=== PATIENT | female | born 1945 | race Caucasian/White ===

== ENCOUNTER → 2020-04-17 10:12 | Outpatient (CLI) | payer MEDICARE, SELFPAY ==
--- NOTE | ~2020-04-17 | US_ITS ---
US soft tissue head and neck INDICATION: Dysphagia TECHNIQUE: Real-time sonographic images of the thyroid gland were obtained. COMPARISON: No prior studies for comparison. FINDINGS: The right thyroid lobe measures 4.4 x 1.5 x 1.4 cm. The left thyroid lobe measures 4.8 x 1 .5 x 1.2 cm. Mildly heterogeneous thyroid gland. In the right lobe there is a hypoechoic mass with sp ongiform appearance, hypoechoic, wider than tall, smooth margins and no calcifications measuring 10 x 6 x 8 mm, TR 2, not suspicious. In the left lobe there is a hypoechoic oval solid mass with smooth m argins, wider than tall and no calcifications measuring 4 x 3 x 6 mm, TR 4. There are mildly prominen t lymph nodes in the left neck in the area of palpable concern, largest measuring 8 mm. IMPRESSION: 1. Bilateral thyroid nodules, likely benign. Reviewed, dictated and finalized at location A. [employer]
== END ==
PROVIDERS: PCP Family Medicine; Visit Provider Nurse Practitioner Family
DX: R13.10 Dysphagia, unspecified (principal); R59.9 Enlarged lymph nodes, unspecified; E04.2 Nontoxic multinodular goiter
CPT/HCPCS: 76536

== ENCOUNTER 2020-07-20 11:05 | Outpatient (CLI) | payer MEDICARE, SELFPAY ==
[2020-07-20 12:53] LABS: Free T4 Free Thyroxine 1.16 ng/mL (0.78-2.19)
[2020-07-20 13:08] LABS: Total Triiodothyronine (T3) 1.27 NG/ML (0.97-1.69)
[2020-07-22 20:14] LABS: Thyroid Peroxidase Antibodies 2 IU/mL (<9)
[2020-07-24 13:28] LABS: Thyrotropin Receptor Antibody 6.72 IU/L (<=2.00)
== END 2020-07-20 11:06 | disposition home or self-care (01) ==
PROVIDERS: PCP Family Medicine; Referring Provider Internal Medicine Endocrinology, Diabetes & Metabolism; Visit Provider Internal Medicine Endocrinology, Diabetes & Metabolism
DX: E04.2 Nontoxic multinodular goiter (principal); R79.89 Other specified abnormal findings of blood chemistry
CPT/HCPCS: 36415; 83519; 84439; 84443; 84480; 86376

== ENCOUNTER → 2020-07-23 11:39 | Outpatient (CLI) | payer MEDICARE, SELFPAY ==
--- NOTE | ~2020-07-23 | US_ITS ---
EXAMINATION: US thyroid DATE: 07/23/2020 12:03 INDICATION: Left thyroid nodule. TECHNIQUE: Multiple ultrasound images of the thyroid were obtained. COMPARISON: Ultrasound 04/17/2020 FINDINGS: The right thyroid lobe measures 5.2 x 1.7 x 1.5 cm. The left thyroid lobe measures 4.7 x 1.1 x 1.2 c m. In the right thyroid lobe, there is an 8 mm solid, hypoechoic, ynrzg-emow-oesv nodule with ill-de fined margin without echogenic foci (TI-RADS TR4). In the left thyroid lobe, there is a 6 mm solid, h ypoechoic, rxasr-gocb-vhvy nodule with smooth margin without echogenic foci (TR4). IMPRESSION: 1. Small thyroid nodules, likely not clinically significant. No follow-up is needed. Reviewed, dictated and finalized at location A. IMPRESSION: 1. Small thyroid nodules, likely not clinically significant. No follow-up is ne eded.
== END ==
PROVIDERS: Visit Provider Internal Medicine Endocrinology, Diabetes & Metabolism
DX: E04.2 Nontoxic multinodular goiter (principal)
CPT/HCPCS: 76536

== ENCOUNTER 2021-02-22 07:38 | Outpatient (CLI) | payer MEDICARE, SELFPAY ==
[2021-02-22 08:47] LABS: Total Triiodothyronine (T3) 1.43 NG/ML (0.97-1.69)
[2021-02-22 08:53] LABS: Free T4 Free Thyroxine 1.17 ng/mL (0.78-2.19)
== END 2021-02-22 07:39 | disposition home or self-care (01) ==
LOC: ANHLAB 07:40
PROVIDERS: PCP Family Medicine; Visit Provider Internal Medicine Endocrinology, Diabetes & Metabolism
DX: E05.00 Thyrotoxicosis with diffuse goiter without thyrotoxic crisis or storm (principal)
CPT/HCPCS: 36415; 84439; 84443; 84480

== ENCOUNTER 2021-07-25 09:54 | Outpatient (CLI) | payer MEDICARE, SELFPAY ==
[2021-07-25 13:56] LABS: Free T4 Free Thyroxine 1.36 ng/mL (0.78-2.19)
[2021-07-28 15:02] LABS: Triiodothyronine T3 Free 3.1 pg/mL (2.3-4.2)
== END 2021-07-25 09:55 | disposition home or self-care (01) ==
LOC: ANHWCLAB 09:57
PROVIDERS: PCP Family Medicine; Referring Provider Internal Medicine Endocrinology, Diabetes & Metabolism; Visit Provider Internal Medicine Endocrinology, Diabetes & Metabolism
DX: E04.2 Nontoxic multinodular goiter (principal); E05.00 Thyrotoxicosis with diffuse goiter without thyrotoxic crisis or storm
CPT/HCPCS: 36415; 84439; 84443; 84481

== ENCOUNTER → 2021-07-29 13:35 | Outpatient (CLI) | payer MEDICARE, SELFPAY ==
--- NOTE | ~2021-07-29 | US_ITS ---
EXAMINATION: US thyroid DATE: 07/29/2021 14:00 INDICATION: Thyroid nodules. TECHNIQUE: Multiple ultrasound images of the thyroid were obtained. COMPARISON: Ultrasound 07/23/2020 FINDINGS: The right thyroid lobe measures 4.2 x 1.7 x 1.3 cm. The left thyroid lobe measures 4.5 x 1.3 x 1.4 c m. In the left thyroid lobe, there is a 6 mm solid, isoechoic, mhwpw-sjyc-enwf nodule with ill-defin ed margin without echogenic foci (TI-RADS TR3). In the right thyroid lobe, there is a 12 mm solid, hy poechoic, cayrj-ilvr-ufcf nodule with ill-defined margin without echogenic foci (TR4). In the right t hyroid lobe, there is a 6 mm solid, hypoechoic, msthv-jcei-ttml nodule with ill-defined margin withou t echogenic foci (TR4). IMPRESSION: 1. Thyroid nodules. Thyroid ultrasound is recommended in one year. Reviewed, dictated and finalized at location A.
== END ==
PROVIDERS: Visit Provider Internal Medicine Endocrinology, Diabetes & Metabolism
DX: E04.2 Nontoxic multinodular goiter (principal)
CPT/HCPCS: 76536

== ENCOUNTER 2021-09-01 14:31 | Outpatient (CLI) | payer MEDICARE, SELFPAY ==
--- NOTE | ~2021-09-01 | XR_ITS ---
EXAMINATION: XR lumbar spine 2-3V DATE: 09/01/2021 14:55 INDICATION: Low back pain, unspecified. TECHNIQUE: 3 views of lumbar spine were obtained. COMPARISON: Lumbar spine radiographs 12/14/2014 FINDINGS: There is 3 degrees dextrocurvature of lumbar spine. Vertebral body heights are normal. Ther e is severely decreased disc height at L5-S1 with interbody fusion. There are osteophytes at all leve ls. There is multilevel facet joint osteoarthritis, severe in lower lumbar spine. There are surgical clips in left abdomen. IMPRESSION: 1. Mild lumbar spondylosis. Reviewed, dictated and finalized at location A. IMPRESSION: 1. Mild lumbar spondylosis.
== END 2021-09-01 14:32 | disposition home or self-care (01) ==
PROVIDERS: PCP Family Medicine; Visit Provider Nurse Practitioner Family
DX: Z98.1 Arthrodesis status (principal); M47.816 Spondylosis without myelopathy or radiculopathy, lumbar region
CPT/HCPCS: 72100

== ENCOUNTER 2021-09-17 16:17 | Emergency (ER) | payer MEDICARE, SELFPAY ==
[2021-09-17] VITALS (9 sets, daily range): BP systolic 133–168; BP diastolic 70–99; PULSE 76–96; RESP 16–18; TEMP 36.8; O2SAT 96–100
--- NOTE | ~2021-09-17 | CT_ITS ---
EXAMINATION: CT cervical spine wo con DATE: 09/17/2021 17:52 INDICATION: FALL. NECK PAIN. TECHNIQUE: Computed tomography (CT) of the cervical spine was performed without intravenous contrast. Automated exposure control and iterative reconstruction technique were employed. The dose-length pro duct was 411.69 mGy-cm. COMPARISON: 12/30/2011. FINDINGS: Counting reference: Craniocervical junction. There are seven cervical type vertebral bodies. Anatomic Variants: None. Vertebral Body Alignment: Intact. Craniocervical junction: Severe degenerative change. Alignment intact. Osseous structures/fracture: No evidence of a lytic or blastic process in the visualized spine. N o evidence of acute fracture. Cervical soft tissues: The paraspinal soft tissues planes are maintained. Biapical pleural scarrin g. Degenerative changes: Multilevel degenerative disc disease and facet arthropathy. Multilevel severe b ilateral neural foraminal narrowing. No severe central canal narrowing. IMPRESSION: No acute fracture or traumatic malalignment in the cervical spine. Reviewed, dictated and finalized at location K.
--- NOTE | ~2021-09-17 | XR_ITS ---
EXAM: XR shoulder RT min 2V DATE: 09/17/2021 18:05 HISTORY: right shoulder pain, fall . COMPARISON: None available. FINDINGS: Decreased mineralization. No fracture or dislocation. No lytic or blastic lesion. Degenera tive changes in the AC joint and glenohumeral joint. No erosion or periosteal change. Soft tissues wi thin normal limits. IMPRESSION: No acute osseous finding in the right shoulder. Reviewed, dictated and finalized at location K.
--- NOTE | ~2021-09-17 | XR_ITS ---
EXAM: XR ribs RT 2V w CXR 2V DATE: 09/17/2021 18:05 HISTORY: right posterior rib pain, fall . COMPARISON: None available. FINDINGS: Decreased mineralization. No fracture or dislocation. Degenerative change in the spine and right shoulder. Visualized lung parenchyma is clear. IMPRESSION: No acute osseous finding in the right ribs. Reviewed, dictated and finalized at location K.
--- NOTE | ~2021-09-17 | CT_ITS ---
EXAMINATION: CT thoracic lumbar wo con DATE: 09/17/2021 17:52 INDICATION: FALL. BACK PAIN. . TECHNIQUE: Computed tomography (CT) of the thoracic spine was performed without intravenous contrast. Automated exposure control and iterative reconstruction technique were employed. The dose-length pro duct was 1966.06 mGy-cm. COMPARISON: CT chest 02/06/2011 FINDINGS: Thoracic spine: Exaggerated thoracic kyphosis. Vertebral body alignment intact. Multilevel degenerati ve disc disease with marginal osteophytosis. Multilevel facet arthropathy. Coronary artery and aortic calcifications. Hiatal hernia. Osteopenia. Lumbar spine: Vertebral body heights and alignment are preserved. Multilevel degenerative disc diseas e and marginal osteophytosis, most severe at L5-S1. Multilevel facet arthropathy. Multilevel moderate central canal narrowing and bilateral neural foraminal narrowing. Bilateral L5 transverse process fu korina to the iliac crests. Osteopenia. IMPRESSION: 1. No acute fracture or traumatic malalignment in the thoracic or lumbar spine. Reviewed, dictated and finalized at location K.
--- NOTE | ~2021-09-17 | CT_ITS ---
EXAMINATION: CT brain wo con DATE: 09/17/2021 17:51 INDICATION: FALL. PT HIT HEAD. 2 KNOTS ON TOP OF HEAD. . TECHNIQUE: Computed tomography (CT) of the head was performed without intravenous contrast. The mA wa s adjusted according to patient size. Iterative reconstruction technique was employed. The dose-lengt h product was 681.00 mGy-cm. COMPARISON: None FINDINGS: No acute intracranial hemorrhage or extra-axial fluid collection. No hydrocephalus, mass, or herniation. No acute ischemic infarct. Unremarkable dural venous sinus attenuation. No acute osseous abnormality. Mild soft tissue contusion near the vertex. Ethmoid and maxillary sinus mucosal thickening, otherwise the aerated spaces are clear. Mild atrophy and chronic white matter change. 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 Atherosclerotic intra cranial calcifications. Bilateral lens replacements. IMPRESSION: No acute intracranial process. Reviewed, dictated and finalized at location K.
--- NOTE | 2021-09-17 17:29 | ED.FALL ---
HPI - Fall General Chief Complaint: Fall Stated Complaint: Fall, hit head Time Seen by Provider: 09/17/21 17:20 Source: patient Mode of arrival: wheelchair Limitations: no limitations History of Present Illness HPI Narrative: This is a 76-year-old female that presents to the emergency department after a fall today with head injury. Reports she was tripped by her dog and fell off of a porch. Reports falling down a couple of feet and landing on her head. She did not lose consciousness. Reports back pain and right shoulder pain. Denies vision changes, vomiting, numbness, or weakness. Related Data Home Medications Medication Instructions Recorded Confirmed aspirin 81 mg tablet,delayed 81 mg PO DAILY 04/12/20 09/01/21 release isosorbide dinitrate 30 mg tablet 30 mg PO ONCE 04/12/20 09/01/21 losartan 50 mg tablet 50 mg PO DAILY 04/12/20 09/01/21 simvastatin 40 mg tablet 40 mg PO DAILY 04/12/20 09/01/21 metoprolol tartrate 25 mg tablet 25 mg PO DAILY 07/20/20 09/01/21 Allergies Allergy/AdvReac Type Severity Reaction Status Date / Time TAPE Allergy Mild RASH Uncoded 09/01/21 13:34 Review of Systems Review of Systems: CONSTITUTIONAL: Denies fever EYES: Denies visual changes CARDIOVASCULAR: Denies chest pain RESPIRATORY: Denies dyspnea. GASTROINTESTINAL: Denies vomiting MUSCULOSKELETAL: Reports back pain, joint pain, and myalgia. NEUROLOGIC: Denies numbness, or weakness. All systems reviewed & are unremarkable except as noted in HPI and below PMFSH Past Medical History Medical History Acid reflux Atherosclerotic heart disease of [place] coronary artery with angina pectoris BMI 27.0-27.9,adult BMI 28.0-28.9,adult Cataracts, bilateral COPD (chronic obstructive pulmonary disease) Dietary counseling and surveillance (06/04/15) Encounter for screening for malignant neoplasm of colon H/O: HTN (hypertension) Heart disease Hiatal hernia Other secondary cataract, left eye Ovarian abscess Slipped Heahter fundoplication SOB (shortness of breath) Surgical History Surgical History History of appendectomy History of cataract surgery 11/09/20 History of cholecystectomy Family History Family History Father Aneurysm Mother Heart disease Lung cancer Diabetes mellitus Sibling Agent orange exposure Sibling Cerebrovascular accident Other Asthma CAD (coronary artery disease) CHF (congestive heart failure), NYHA class I COPD (chronic obstructive pulmonary disease) Cancer Hearing loss Obesity Renal failure Social History Social History Smoking status: Former smoker Second hand tobacco smoke exposure: Yes Alcohol intake: former Substance use: never Substance use type: does not use Additional occupation/education comments: [employer] Gender identity (if verbalized by the patient): Female Exam Narrative: GENERAL: Well-appearing, well-nourished, and in no acute distress. HEAD: Normocephalic, atraumatic. EYES: PERRLA and EOMI. ENT: Nares clear, no rhinorrhea or epistaxis. Mucous membranes moist. Oropharynx without tonsillar hypertrophy exudate or other lesions. Bilateral TMs pearly lombardi non-bulging NECK: Supple. No adenopathy or masses. C-collar in place CHEST: Clear to auscultation. No respiratory distress. No wheezes rales or rhonchi HEART: Regular rate and rhythm. No murmur heard. Normal peripheral pulses. BACK: Tender to palpation of midline lower thoracic spine and lumbar spine. EXTREMITIES: Normal range of motion. No edema or obvious deformity SKIN: Warm, dry, no rash. NEURO: No focal deficits. Alert and oriented x3. Cranial nerves II through XII grossly intact PSYCH: Normal mood and affe
== END 2021-09-17 19:57 | disposition home or self-care (01) ==
PROVIDERS: Emergency Provider Emergency Medicine; PCP Family Medicine
DX: S09.90XA Unspecified injury of head, initial encounter (principal); S49.91XA Unspecified injury of right shoulder and upper arm, initial encounter; S39.92XA Unspecified injury of lower back, initial encounter; I25.119 Atherosclerotic heart disease of native coronary artery with unspecified angina pectoris; J44.9 Chronic obstructive pulmonary disease, unspecified; I11.9 Hypertensive heart disease without heart failure; K21.9 Gastro-esophageal reflux disease without esophagitis; Z98.49 Cataract extraction status, unspecified eye; Z79.82 Long term (current) use of aspirin; Z87.891 Personal history of nicotine dependence; W13.8XXA Fall from, out of or through other building or structure, initial encounter
CPT/HCPCS: 70450; 71046; 71100; 72125; 72128; 72131; 73030; 99284

== ENCOUNTER 2021-09-29 11:01 | Outpatient (CLI) | payer MEDICARE, SELFPAY ==
[2021-09-29 11:41] LABS: Hematocrit 47.1 % (37.0-47.0); Hemoglobin 15.2 g/dL (12.0-15.0); Mean Corpuscular HGB Conc 32.3 g/dl (32-36); Mean Corpuscular Hemoglobin 29.2 pg (26-34); Mean Corpuscular Volume 90.4 fl (80-100); Mean Platelet Volume 9.9 fl (7.4-10.4); Platelet Count Result 213 k/mm3 (150-375); Red Blood Count 5.21 M/mm3 (4.2-5.4); Red Cell Distribution Width 12.5 % (11.5-14.5); White Blood Count 7.2 K/mm3 (4.5-10.0)
[2021-09-29 11:58] LABS: Alanine Aminotransferase 16 U/L (6-35); Albumin Level 4.1 g/dL (3.5-5.1); Alkaline Phosphatase 121 U/L (38-126); Anion Gap 5 mmol/L (8-16); Aspartate Amino Transferase 21 U/L (14-36); Blood Urea Nitrogen 18 mg/dL (7-17); Carbon Dioxide 25 mmol/L (22-30); Chloride 109 mmol/L (98-107); Cholesterol 124 mg/dL (0-200); Estimated Glomerular Filt Rate > 60; Glucose 116 mg/dL (65-110); HDL Direct 37 mg/dL; Potassium 4.6 mmol/L (3.4-5.0); Sodium 139 mmol/L (137-145); Triglycerides 168 mg/dL (<150)
[2021-09-29 12:09] LABS: LDL Cholesterol Direct 51 mg/dL
[2021-09-29 12:27] LABS: Vitamin D 25 Hydroxy 31.9 ng/mL
== END 2021-09-29 11:02 | disposition home or self-care (01) ==
PROVIDERS: PCP Family Medicine; Visit Provider Nurse Practitioner Family
DX: I10 Essential (primary) hypertension (principal); Z13.220 Encounter for screening for lipoid disorders; E55.9 Vitamin D deficiency, unspecified
CPT/HCPCS: 36415; 80053; 80061; 82306; 85027

== ENCOUNTER → 2021-10-24 13:06 | Outpatient (CLI) | payer MEDICARE, SELFPAY ==
--- NOTE | ~2021-10-24 | DEXA_ITS ---
Bone Density Report Name: KATERIN DUONG Age: 76 Sex: Female Ethnicity: White Date of : 1945 Indication: postmenopausal; screening for osteoporosis; height loss; Referring Provider: Aliza Bah Study: Bone densitometry was performed. Exam Date: October 24, 2021 Accession number: [id number] Bone Density: Region BMD T-score Z-score Classification AP Spine (L1-L4) 1.160 1.0 3.6 Normal Femoral Neck (Left) 0.769 -0.7 1.5 Normal Total Hip (Left) 0.899 -0.4 1.6 Normal Femoral Neck (Right) 0.695 -1.4 0.8 Osteopenia Total Hip (Right) 0.856 -0.7 1.2 Normal Total Hip Mean 0.878 -0.6 1.4 Normal World Health Organization criteria for BMD impression classify patients as: Normal (T-score at or above -1.0), Osteopenia (T-score between -1.0 and -2.5), or Osteoporosis (T-score at or below -2.5). 10-year Fracture Risk(1): Major Osteoporotic Fracture 12% Hip Fracture 2.5% Reported Risk Factors: [place] (), Neck BMD=0.695, BMI=29.1 (1) FRAX(R) Version 3.08. Fracture probability calculated for an untreated patient. Fracture probability may be lower if the patient has received treatment. Clinical Information Provided by Patient: Patient maximum height was 69 Menopause Age: 57 No regular weight bearing exercise Does not regularly consume dairy products Drinks caffeinated beverages Onset of menses at age 11 Number of children 4 Impression: The patient has low bone mass, based on the Right Femoral Neck T-score. The patient has an estimated ten-year risk of hip fracture of 2.5% and an estimated ten-year risk of major fracture of 12%, based on the WHO FRAX algorithm. Discussion: BONE DENSITY IS LOW AT ONE OR MORE SKELETAL SITES. This patient's lowest T-score is low at one or more skeletal sites. It meets the World Health Organization's (WHO) criteria for ?low bone mass? (T-score between -1.0 and -2.5). The patient's 10-year risk of fracture as calculated by FRAX is less than the threshold where pharmacological therapy is recommended by the National Osteoporosis Foundation (NOF). However, all treatment decisions require clinical judgment and consideration of individual patient factors, including patient preferences, comorbidities, previous drug use, risk factors not captured in the FRAX model (e.g., frailty, falls, vitamin D deficiency, increased bone turnover, interval significant decline in bone density) and possible under or overestimation of fracture risk by FRAX. The patient should follow a healthful lifestyle (good nutrition with adequate calcium and vitamin D, and appropriate weight-bearing exercise). Follow-Up: Consider repeating this study in 2 to 3 years to reassess this patient's status, or sooner if there is some new clinical indication. Reported by: [facility] on 10/24/2021 1:35:00 P
== END ==
PROVIDERS: PCP Family Medicine; Visit Provider Internal Medicine Endocrinology, Diabetes & Metabolism
DX: Z78.0 Asymptomatic menopausal state (principal); M85.851 Other specified disorders of bone density and structure, right thigh
CPT/HCPCS: 77080

== ENCOUNTER 2021-12-20 09:59 | Outpatient (CLI) | payer MEDICARE, SELFPAY ==
[2021-12-20 10:29] LABS: Glucose 105 mg/dL (65-110)
== END 2021-12-20 10:00 | disposition home or self-care (01) ==
PROVIDERS: PCP Family Medicine; Visit Provider Nurse Practitioner Family
DX: R73.09 Other abnormal glucose (principal)
CPT/HCPCS: 36415; 82947

== ENCOUNTER 2022-02-01 09:50 | Outpatient (CLI) | payer MEDICARE, SELFPAY ==
[2022-02-01 10:51] LABS: Free T4 Free Thyroxine 1.17 ng/mL (0.78-2.19)
[2022-02-04 04:14] LABS: Triiodothyronine T3 Free 2.9 pg/mL (2.3-4.2)
== END 2022-02-01 09:51 | disposition home or self-care (01) ==
PROVIDERS: PCP Family Medicine; Visit Provider Internal Medicine Endocrinology, Diabetes & Metabolism
DX: E04.2 Nontoxic multinodular goiter (principal); E05.00 Thyrotoxicosis with diffuse goiter without thyrotoxic crisis or storm
CPT/HCPCS: 36415; 84439; 84443; 84481

== ENCOUNTER 2022-05-04 02:12 | Day surgery (SDC) | payer MEDICARE, SELFPAY ==
[2022-04-20 14:06] VITALS: BMI 27.3
--- NOTE | 2022-05-03 14:16 | PM.HPGS ---
History of Present Illness History of Present Illness Consent: Risks, benefits, and alternatives have been discussed and questions answered. Patient agrees to proceed with procedure. Chief complaint: neoplasm screening Narrative: Nisa Dodd is a 77 year old female Who was referred for colon cancer screening. her last colonoscopy was 20 years ago. She has cecal polyp at that time which was treated with ablation. Review of Systems Review of Systems: All systems reviewed & are unremarkable except as noted in HPI and below PMFSH Past Medical History Medical History Acid reflux Atherosclerotic heart disease of [place] coronary artery with angina pectoris BMI 27.0-27.9,adult BMI 28.0-28.9,adult Cataracts, bilateral COPD (chronic obstructive pulmonary disease) Dietary counseling and surveillance (06/04/15) Encounter for screening for malignant neoplasm of colon H/O: HTN (hypertension) Heart disease Hiatal hernia Other secondary cataract, left eye Ovarian abscess Slipped Heather fundoplication SOB (shortness of breath) Surgical History Surgical History History of appendectomy History of cataract surgery 11/09/20 History of cholecystectomy Family History Family History Father Aneurysm Mother Heart disease Lung cancer Diabetes mellitus Asthma Sibling Agent orange exposure Sibling Cerebrovascular accident Other CAD (coronary artery disease) CHF (congestive heart failure), NYHA class I COPD (chronic obstructive pulmonary disease) Cancer Hearing loss Obesity Renal failure Social History Social History Smoking status: Never smoker Second hand tobacco smoke exposure: Yes Alcohol intake: former Substance use: never Substance use type: does not use Lack of Transportation: No Lack of Food: Sometimes True Current Housing: I Have Housing Concerned About Future Housing: No Difficulty Paying Gas/Electric Bills: YES Difficulty Paying for Meds: No Currently Unemployed: YES Education: Trade/Vocational Certificate Difficulty w/ Childcare or Family Care: No Living arrangements: with family Additional living arrangements comments: Her daughter and grandchild moved into her huae. Additional occupation/education comments: [employer] Gender identity (if verbalized by the patient): Female Spiritual care concerns: No Meds Home Medications and Allergies Home Medications Medication Instructions Recorded Confirmed Type aspirin 81 mg tablet,delayed 81 mg PO DAILY 04/12/20 05/04/22 History release isosorbide dinitrate 30 mg tablet 30 mg PO DAILY 04/12/20 05/04/22 History losartan 50 mg tablet 50 mg PO DAILY 04/12/20 05/04/22 History simvastatin 40 mg tablet 40 mg PO DAILY 04/12/20 05/04/22 History metoprolol tartrate 25 mg tablet 12.5 mg PO BID 07/20/20 05/04/22 History cholecalciferol (vitamin D3) 50 50 mcg PO BID 02/01/22 05/04/22 History mcg (2,000 unit) capsule Allergies Allergy/AdvReac Type Severity Reaction Status Date / Time adhesive tape AdvReac Rash Verified 05/04/22 08:22 Exam Const: General: alert Orientation/consciousness: patient oriented x3 Resp: Auscultation: clear to auscultation bilaterally Cardio: Rhythm: regular rhythm GI: GI Palp: Yes Soft to palpation and No Tenderness to palpation present (GI) Neuro: General: patient oriented x3 Assessment and Plan Assessment and plan (1) Colon cancer screening: Code(s): Z12.11 - Encounter for screening for malignant neoplasm of colon Status: Acute Assessment and Plan: Colonoscopy with possible biopsy or polypectomy or cautery or injection of substances.
[2022-05-04 08:13] VITALS: BP 178/65; PULSE 64; RESP 18; TEMP 36.4; O2SAT 98; BMI 26.4
[2022-05-04] MEDS: LACTATED RINGERS 1,000 ML 150 ML IV CONT (08:35)
--- NOTE | 2022-05-04 08:47 | WPDANESEPPF ---
Anes - Initial Pre Proc Eval Procedure: Operation Date: 05/04/22 09:30 Proposed Procedures p Screening Colonoscopy - Jeronimo Cabral MD Date/Time: 05/04/22 08:47 Surgeon: Jeronimo Cabral MD Pre Op Diagnosis: neoplasm screening Patient Data Age: 77 Gender: F Height: 1.75 m Weight: 81.4 kg Last Vital Signs Temp 97.6 F 05/04/22 08:13 Pulse 64 05/04/22 08:13 Resp 18 05/04/22 08:13 BP 178/65 H 05/04/22 08:13 Pulse Ox 98 05/04/22 08:13 O2 Del Method Room Air 05/04/22 08:13 Allergies Allergy/AdvReac Type Severity Reaction Status Date / Time adhesive tape AdvReac Rash Verified 05/04/22 08:22 Home Medications Medication Instructions Recorded Confirmed Type aspirin 81 mg tablet,delayed 81 mg PO DAILY 04/12/20 05/04/22 History release isosorbide dinitrate 30 mg tablet 30 mg PO DAILY 04/12/20 05/04/22 History losartan 50 mg tablet 50 mg PO DAILY 04/12/20 05/04/22 History simvastatin 40 mg tablet 40 mg PO DAILY 04/12/20 05/04/22 History metoprolol tartrate 25 mg tablet 12.5 mg PO BID 07/20/20 05/04/22 History cholecalciferol (vitamin D3) 50 50 mcg PO BID 02/01/22 05/04/22 History mcg (2,000 unit) capsule Patient hx anesthesia problems: none Family hx anesthesia problems: none Results Review: All pre-operative results and documents have been reviewed as part of the pre-operative evaluation. [facility] Past Medical History Medical History Acid reflux Atherosclerotic heart disease of [place] coronary artery with angina pectoris BMI 27.0-27.9,adult BMI 28.0-28.9,adult Cataracts, bilateral COPD (chronic obstructive pulmonary disease) Dietary counseling and surveillance (06/04/15) Encounter for screening for malignant neoplasm of colon H/O: HTN (hypertension) Heart disease Hiatal hernia Other secondary cataract, left eye Ovarian abscess Slipped Heather fundoplication SOB (shortness of breath) Surgical History Surgical History History of appendectomy History of cataract surgery 11/09/20 History of cholecystectomy Family History Family History Father Aneurysm Mother Heart disease Lung cancer Diabetes mellitus Asthma Sibling Agent orange exposure Sibling Cerebrovascular accident Other CAD (coronary artery disease) CHF (congestive heart failure), NYHA class I COPD (chronic obstructive pulmonary disease) Cancer Hearing loss Obesity Renal failure Social History Social History Smoking status: Never smoker Second hand tobacco smoke exposure: Yes Alcohol intake: former Substance use: never Substance use type: does not use Lack of Transportation: No Lack of Food: Sometimes True Current Housing: I Have Housing Concerned About Future Housing: No Difficulty Paying Gas/Electric Bills: YES Difficulty Paying for Meds: No Currently Unemployed: YES Education: Trade/Vocational Certificate Difficulty w/ Childcare or Family Care: No Living arrangements: with family Additional living arrangements comments: Her daughter and grandchild moved into her [facility]. Additional occupation/education comments: [employer] Gender identity (if verbalized by the patient): Female Spiritual care concerns: No Anes - Eval Final PreProcedure Day of Procedure 05/04/22 08:47 Patient weight: overweight Heart: regular rate and rhythm Lungs: clear to auscultation Airway: Mallampati scale class II Neurological: alert and oriented Last oral intake: >/= 8 hours ASA classification: III Emergent: no Anesthetic plan: proceed Anesthesia type and monitoring: general GIVS and standard monitoring Results Review: All pre-operative results and docu
[2022-05-04 09:48] VITALS: BP 124/67; PULSE 54; RESP 18; O2SAT 98
[2022-05-04 09:58] VITALS: BP 129/54; PULSE 54; RESP 18; O2SAT 98
[2022-05-04 10:08] VITALS: BP 128/80; PULSE 52; RESP 18; O2SAT 98
== END 2022-05-04 10:25 | disposition home or self-care (01) ==
PROVIDERS: PCP Family Medicine; Visit Provider Internal Medicine Gastroenterology
PROC: 0DJD8ZZ Inspection of Lower Intestinal Tract, Via Natural or Artificial Opening Endoscopic (ICD-10-PCS; CPT 45378; principal; 2022-05-04 09:30)
DX: Z12.11 Encounter for screening for malignant neoplasm of colon (principal); Z86.010 Personal history of colon polyps; K57.30 Diverticulosis of large intestine without perforation or abscess without bleeding; F10.90 Alcohol use, unspecified, uncomplicated; J44.9 Chronic obstructive pulmonary disease, unspecified; I10 Essential (primary) hypertension; I25.119 Atherosclerotic heart disease of native coronary artery with unspecified angina pectoris; Z82.49 Family history of ischemic heart disease and other diseases of the circulatory system; Z79.82 Long term (current) use of aspirin; Z79.899 Other long term (current) drug therapy
CPT/HCPCS: G0105; J2704; J7120

== ENCOUNTER 2022-05-05 09:08 | Outpatient (CLI) | payer MEDICARE, SELFPAY ==
--- NOTE | ~2022-05-05 | US_ITS ---
Procedure: Duplex Doppler examination of the bilateral carotids. Indication: Right carotid bruit Technique: Real time, color-flow and pulse wave Doppler examination of the bilateral carotids was performed. Findings: Smith scale ultrasonography of the right neck demonstrated small calcified plaques at the right caroti d bulb/bifurcation, and in the proximal right internal carotid artery. There was demonstration of nor mal color-flow and Doppler waveforms within the right common, internal and external carotid arteries. The peak systolic velocities in the right common, internal and external carotid arteries were demons trated to be 89 cm/sec, 86 cm/sec and 111 cm/sec respectively. The right ICA/CCA ratio was 1.0.The pr oximal right internal carotid artery demonstrates 0% stenosis relative to the normal distal artery kobe men diameter. Smith scale sonography of the left neck demonstrated small plaques at the left carotid bifurcation. Th ere was demonstration of normal color-flow and wave forms within the left common, internal and travel clerk al carotid arteries. The peak systolic velocities in the left common, internal and external carotid a rteries were demonstrated to be 86cm/sec, 72 cm/sec and 138 cm/sec respectively. The left ICA/CCA rat io was 1.1. The proximal left internal carotid artery demonstrates 0% stenosis relative to the normal distal artery lumen diameter. There was antegrade flow demonstrated in the bilateral vertebral arteries. Impression: No hemodynamically significant stenosis of the bilateral internal carotid arteries. Antegrade flow in the bilateral vertebral arteries. Note: The methodology used is an indirect measurement validated against a direct method (such as the NASCET criteria) that compares diameters at the stenosis to the distal ICA. Reviewed, dictated and finalized at location M. [employer] Impression: No hemodynamically significant stenosis of the bilateral internal carotid arter ies. Antegrade flow in the bilateral vertebral arteries. Note: The methodology used is an indirect measurement validated against a direct meth od (such as the NASCET criteria) that compares diameters at the stenosis to the distal ICA.
== END 2022-05-05 09:09 | disposition home or self-care (01) ==
PROVIDERS: PCP Family Medicine; Visit Provider Internal Medicine Cardiovascular Disease
DX: R09.89 Other specified symptoms and signs involving the circulatory and respiratory systems (principal)
CPT/HCPCS: 93880

== ENCOUNTER 2022-08-03 10:51 | Outpatient (CLI) | payer MEDICARE, SELFPAY ==
[2022-08-03 20:32] LABS: Free T4 Free Thyroxine 1.51 ng/mL (0.78-2.19); Vitamin D 25 Hydroxy 29.6 ng/mL
[2022-08-09 04:54] LABS: Triiodothyronine T3 Free 2.7 pg/mL (2.3-4.2)
== END 2022-08-03 10:52 | disposition home or self-care (01) ==
LOC: ANHWCLAB 10:53
PROVIDERS: PCP Family Medicine; Visit Provider Internal Medicine Endocrinology, Diabetes & Metabolism
DX: E04.2 Nontoxic multinodular goiter (principal); E05.00 Thyrotoxicosis with diffuse goiter without thyrotoxic crisis or storm; M85.80 Other specified disorders of bone density and structure, unspecified site; R79.89 Other specified abnormal findings of blood chemistry
CPT/HCPCS: 36415; 82306; 84439; 84443; 84481

== ENCOUNTER 2022-08-10 10:05 | Outpatient (CLI) | payer MEDICARE, SELFPAY ==
--- NOTE | ~2022-08-10 | US_ITS ---
Thyroid ultrasound. Clinical History: Nontoxic multinodular goiter COMPARISON: 07/29/2021, 07/23/2020 Findings: Real-time sonography of the thyroid gland was performed. The right lobe measures 4.2 x 1.8 x 1.4 cm. The left lobe measures 4.8 x 1.1 x 1.5 cm. The isthmus is 2 mm in AP diameter. There is a 1.0 cm round, circumscribed nodule the right midpole, with mixed echogenicity. There is a 0.4 cm hypoechoic, possibly cystic nodule at the right upper pole. There is a 0.6 cm predominantly is oechoic nodule at the left mid to upper pole. Impression: Small thyroid nodules, as detailed above, similar to prior exams.. Reviewed, dictated and finalized at [facility]. Impression: Small thyroid nodules, as detailed above, similar to prior exams..
== END 2022-08-10 10:06 | disposition home or self-care (01) ==
PROVIDERS: PCP Family Medicine; Visit Provider Internal Medicine Endocrinology, Diabetes & Metabolism
DX: E04.2 Nontoxic multinodular goiter (principal)
CPT/HCPCS: 76536

== ENCOUNTER 2023-08-06 08:59 | Outpatient (CLI) | payer MEDICARE, SELFPAY ==
[2023-08-06 14:39] LABS: Free T4 Free Thyroxine 1.27 ng/mL (0.78-2.19); Vitamin D 25 Hydroxy 69.8 ng/mL
== END 2023-08-06 09:00 | disposition home or self-care (01) ==
LOC: ANHWCLAB 08:59
PROVIDERS: PCP Family Medicine; Visit Provider Internal Medicine Endocrinology, Diabetes & Metabolism
DX: E04.2 Nontoxic multinodular goiter (principal); M85.80 Other specified disorders of bone density and structure, unspecified site; R79.89 Other specified abnormal findings of blood chemistry; Z78.0 Asymptomatic menopausal state
CPT/HCPCS: 36415; 82306; 84439; 84443

== ENCOUNTER 2024-08-26 00:49 | Day surgery (SDC) | payer MEDICARE, SELFPAY ==
[2024-08-25 09:38] VITALS: BMI 23.6
[2024-08-26] VITALS (16 sets, daily range): BP systolic 128–193; BP diastolic 55–99; PULSE 44–58; RESP 12–21; TEMP 36.4; O2SAT 92–97; BMI 25.7
--- OUTSIDE RECORDS SUMMARY | 2024-08-26 00:52 | XMS_ITS | Clinical Summary ---
Author Organization [facility] Address [facility] [place] [address] Care Team Providers Care Channel Supervisor Name Role Phone Dio Garcia MD Primary Care Provider [phone] Allergies No known active allergies Medications aspirin EC (ASPIRIN EC) 81 MG tablet Take 81 mg by mouth daily. Active losartan 50 MG tablet Take 50 mg by mouth daily. Active isosorbide dinitrate 30 MG tablet Take 30 mg by mouth 4 (four) times daily. Active simvastatin 40 MG tablet Take 40 mg by mouth nightly at bedtime. Active metoprolol tartrate 25 MG tablet Take by mouth 2 (two) times daily. Active Social History Tobacco Use Types Packs/Day Years Used Date Smoking Tobacco: Former Smokeless Tobacco: Never Alcohol Use Standard Drinks/Week Comments Never 0 (1 standard drink = 0.6 oz pur e alcohol) AUDIT-C Answer Date Recorded Q1: How often do you have a drink containing alc ohol? Never 11/02/2020 Average Number of Drinks Not on file 021 Frequency of Binge Drinking Not on file 10/15 Comments No Sex and Gender Information Value Date Recorded Sex Assigned at Not on file Legal Sex Female 4:38 PM CDT Gender Identity Not on file Sexual Orientation Not on file Last Filed Vital Signs Vital Sign Reading Time Taken Comments Blood Pressure 151/70 11/08/2020 8:30 AM CDT Pulse 56 11/08/2020 8:30 AM CDT Temperature 35.6 C (96.1 F) 11/08/2020 6:57 AM CDT Respiratory Rate 16 11/08/2020 8:30 AM CDT Oxygen Saturation 99% 11/08/2020 8:30 AM CDT Inhaled Oxygen Concentration - - Weight 86.2 kg (190 lb) 11/02/2020 12:55 PM CDT Height 175.3 cm (5' 9 ) 11/02/2020 12:55 PM CDT Body Mass Index 28.06 11/02/2020 12:55 PM CDT Plan of Treatment Health Maintenance Due Date Last Done Comments DTaP, Tdap and Td Vaccines ( 1 - Tdap) 1963 Pneumococcal Vaccine: 50+ Ye ars (1 of 1 - PCV) 1994 Zoster Vaccines (1 of 2) 1994 Annual Medicare Wellness Visit 2009 Dexa Scan (General) 2009 RSV Immunization or 60+ Years (1 - 1-dose 75+ series) 2019 COVID-19 Vaccine (2 - 2023-2 5 season) 2023 08/11/2020 Meningococcal B Vaccine Aged Out No l onger eligible based on patient's age to complete this topic Meningococcal Vaccine Aged Out No silvestre navneet eligible based on patient's age to complete this topic RSV Immunizations Under 20 Months Aged Out No longer eligible based on patient's age to complete this topic Medical Devices Implanted Type Area Railway Track Worker Device Identifier Shelf Expiration Date Model / Serial / Lot [id number] Implanted:Qty: 1 on 11/08/2020 by Luis Felipe Wiley MD at [facility] [employer] 08/17/2022 / [id number] / Insurance AETNA Care Teams Channel Supervisor Relationship Specialty Start Date End Date Dio Garcia MD [address] [address] PCP - General FAMILY PRACTICE 11/08/20
--- OUTSIDE RECORDS SUMMARY | 2024-08-26 00:52 | XMS_ITS | Encounter Summary ---
Author Organization [facility] Address [address] [facility] [address] [place] [address] Care Team Providers Care Security Installation Sales Technician Name Role Phone Dio Garcia MD Primary Care Provider [phone] Encounter Details Date Type Department Care Team (Late st Contact Info) Description 09/05/2016 Orders Only [facility] ProviderDulce MD [address] [place] [address] Social History Tobacco Use Types Packs/Day Years Used Date Smoking Tobacco: Never Alcohol Use Standard Drinks/Week Comments Yes 0 (1 standard drink = 0.6 oz pur e alcohol) Comments Unknown Sex and Gender Information Value Date Recorded Sex Assigned at Not on file Legal Sex Female 12:52 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 Historical Provider [facility] Final Result documented in this encounter Visit Diagnoses Not on filedocumented in this encounter Care Teams Security Installation Sales Technician Relationship Specialty Start Date End Date Dio Garcia MD PCP - General 05/06/13 documented as of this encounter
--- OUTSIDE RECORDS SUMMARY | 2024-08-26 00:52 | XMS_ITS | Referral Summary ---
Author Organization [place] [address] Address [address] [place] [address] [address] [place] [address] Care Team Providers Care Film Editor Name Role Phone Dio Garcia MD Primary Care Provider [phone] Encounters Date Type Department Care Team Description 08/11/2024 Telephone [facility] Medical [facility] Cardiology [address] [place] [address] [address] [place] [address] Ra Magaña MD 08/11/2024 Results Follow-Up [facility] Cardiology at [address] [place] [address] Ra Magaña MD 08/07/2024 7:45 AM CDT Ancillary Procedure [facility] Cardiology [address] [place] [address] [address] [place] [address] 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 08/05/2024 8:15 AM CDT Office Visit [facility] Medical [facility] Cardiology [address] [place] [address] [address] [place] [address] Ra Magaña MD RODRIGUEZ (dyspnea on exertion) (Primary Dx); 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; Essential hypertension; Hyperlipidemia LDL goal <70; Syncope and collapse; History of tobacco abuse from Last 3 Months Allergies No known active allergies Medications aspirin 81 mg tablet take 1 tablet (81MG) by oral route every day 0 1 Active isosorbide mononitrate ER (IMDUR) 30 mg 24 hr tablet Take 1 tablet (30 mg total) by mouth daily 90 tablet 3 4 Active simvastatin (ZOCOR) 40 mg tablet TAKE 1 TABLET BY MOUTH EVERY DAY AT NIGHT 90 tablet 3 4 Active losartan (COZAAR) 50 mg tablet TAKE 1 TABLET BY MOUTH EVERY DAY 90 tablet 5 Active metoprolol tartrate (LOPRESSOR) 25 mg immediate release tablet Take 0.5 tablets (12.5 mg total) by mouth 2 (two) times a day 90 tablet 3 5 Active metoprolol tartrate (LOPRESSOR) 25 mg immediate release tablet Take 1 tablet (25 mg total) by mouth 2 (two) times a day 90 tablet 3 4 025 Discontinued Active Problems Problem Noted Date Diagnosed Date RODRIGUEZ (dyspnea on exertion) 08/05/2024 Right carotid bruit 04/20/2022 Syncope and collapse 05/24/2018 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 11/23/2016 History of tobacco abuse 11/23/2016 Hyperlipidemia LDL goal <70 11/23/2016 Non-productive cough 12/03/2015 Overview (07/21/2016): Dry cough Essential hypertension 05/12/2014 Overview (07/21/2016): Essential hypertension Pure hypercholesterolemia 05/12/2014 Overview (07/21/2016): Pure hypercholesterolemia Atherosclerosis of coronary artery 05/12/2014 Overview (07/21/2016): Coronary atherosclerosis Resolved Problems Problem Noted Date Diagnosed Date Resolved Date Dyspnea on exertion 08/29/2016 08/06/19 25 Overview (09/08/2016): Dyspnea on exertion Social History Tobacco Use Types Packs/Day Years Used Date Smoking Tobacco: Never Smokeless Tobacco: Never Tobacco Cessation:Counseling Given: Not Answered Alcohol Use Standard Drinks/Week Comments No 0 (1 standard drink = 0.6 oz pur e alcohol) Comments Unknown Sex and Gender Information Value Date Recorded Sex Assigned at Not on file Legal Sex Female 12:52 AM SHIP/REC/DOC CONTROL Gender Identity Not on file Sexual Orientation Not on file Last Filed Vital Signs Vital Sign Reading Time Taken Comments Blood Pressure 138/80 08/05/2024 7:57 AM CDT Pulse 62 08/05/2024 7:57 AM CDT Temperature - - Respiratory Rate - - Oxygen Saturation 98% 08/05/2024 7:57 AM CDT Inhaled Oxygen Concentration - - Weight 78.5 kg (173 lb) 08/05/2024 7:57 AM CDT Height 175.3 cm (5' 9 ) 08/05/2024 7:57 AM CDT Body Mass Index 25.55 08/05/2024 7:57 AM CDT Plan of Treatment Not on file Procedures Procedure Name Priority Date/Time Associated Diagnosis Comments NM MPI SPECT (REST AND/OR STRESS) MULTIPLE STUDIES Schedule Routine, Read Routine (OP Routine) 08/07/2024 9:23 AM CDT 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 from Last 3 Months Results * NM MPI SPECT (Rest and/or Stress) Multiple Studies (08/07/2024 9:23 AM CDT) Anatomical Region Laterality Modality Body N/A Nuclear Medicine 08/07/2024 8:36 AM CDT Narrative 08/07/2024 1:52 PM CDT [facility] Cardiology [address] [facility] [address], [place] [address] [address] [facility] [address], [place] [address] P:[phone] P:[phone] MPI Imaging Report Patient Name: STEWART DUONGATHARobbie : 1945 Study Date: 08/07/2024 8:36:20 AM Gender: F Tech: GIA WILLIAM Location: [facility] Provider: RA MAGAÑA Height(Cm): 175.3 BSA: Weight(Kg): 78.5 BMI: 25.54 Order Provider: RA MAGAÑA PHYSICIAN: Referring Physician: Dr. Garcia. HCG Physician: Jarad Magaña M.D. Interpreting Physician: Jarad Magaña M.D. Stress Supervision: Jarad Magaña M.D. PROCEDURES: Pharmacologic SPECT Report: Myocardial perfusion imaging with Tc99M Sestamibi SPECT at rest and stress post regadenoson (Lexiscan) infusion. INDICATIONS: Hypertension, Family Hx CAD, High Cholesterol, RODRIGUEZ, and I25.118 Atherosclerotic heart disease of ekuk coronary artery with other forms of angina pectoris. FINDINGS: Procedural Findings: One day rest/stress was used. Tc99m Sestamibi injected IV at rest was 10.6 millicuries 32.2 millicuries of Tc99M Sestamibi injected IV during Lexiscan stress Lexiscan 0.4mg administered IV over 10 seconds. Patient had no symptoms during stress test. Baseline heart rate was 52 BPM Maximum Heart Rate Achieved was: 71 BPM Baseline blood pressure was 138/72 mmHg Post Stress Blood Pressure was 140/70 mmHg Termination: Protocol complete. Resting ECG: Normal sinus rhythm. Nonspecific ST abnormality. Post ECG: No diagnostic ST changes. Arrhythmia: Occasional APCs. Perfusion Findings: Abnormal perfusion imaging - see below. Technical quality of study is excellent. Prone imaging was not performed. Left ventricle cavity size at rest is normal. Left ventricle cavity size with stress is unchanged. A TID of 0.74 was automatically calculated. defect 1: Size is medium. Severity is moderate. Location of defect is in the mid anterior segment, mid anterolateral segment, apical anterior segment and apical lateral segment. Reversibility is full. Type of defect is ischemia. LV Function: There is hyperdynamic global left ventricular systolic function. Left ventricular ejection fraction is 81 %. CONCLUSIONS: There is hyperdynamic global left ventricular systolic function. Left ventricular ejection fraction is 81 %. Size is medium. Severity is moderate. Location of defect is in the mid anterior segment, mid anterolateral segment, apical anterior segment and apical lateral segment. Reversibility is full. Type of defect is ischemia. Myocardial perfusion imaging is abnormal. Negative EKG portion of stress test. Breast attenuation artifact is also noted. Electronically Signed By: Ra Magaña MD 08/07/2024 12:34:00 PM CDT Electronically Signed By: Ra Magaña MD 08/07/2024 12:34:00 PM CDT Procedure Note Ra Magaña MD - 08/07/2024 [facility] Cardiology [address] [facility] [address], [place] [address] [address] [facility] [address], [place] [address] P:[phone] P:[phone] MPI Imaging Report Patient Name: KATERIN DUONG B : 1945 Study Date: 08/07/2024 8:36:20 AM Gender: F Tech: STEWART [facility] Location: [facility] Provider: RA MAGAÑA Height(Cm): 175.3 BSA: Weight(Kg): 78.5 BMI: 25.54 Order Provider: RA MAGAÑA PHYSICIAN: Referring Physician: Dr. Garcia. HCG Physician: Jarad Magaña M.D. Interpreting Physician: Jarad Magaña M.D. Stress Supervision: Jarad Magaña M.D. PROCEDURES: Pharmacologic SPECT Report: Myocardial perfusion imaging with Tc99M Sestamibi SPECT at rest and stresspost regadenoson (Lexiscan) infusion. INDICATIONS: Hypertension, Family Hx CAD, High Cholesterol, RODRIGUEZ, and I25.118Atherosclerotic heart disease of ekuk coronary artery with other forms of angina pectoris. FINDINGS: Procedural Findings: One day rest/stress was used. Tc99m Sestamibi injected IV at rest was 10.6 millicuries 32.2 millicuries of Tc99M Sestamibi injected IV during Lexiscan stress Lexiscan 0.4mg administered IV over 10 seconds. Patient had no symptoms during stress test. Baseline heart rate was 52 BPM Maximum Heart Rate Achieved was: 71 BPM Baseline blood pressure was 138/72 mmHg Post Stress Blood Pressure was 140/70 mmHg Termination: Protocol complete. Resting ECG: Normal sinus rhythm. Nonspecific ST abnormality. Post ECG: No diagnostic ST changes. Arrhythmia: Occasional APCs. Perfusion Findings: Abnormal perfusion imaging - see below. Technical quality of study isexcellent. Prone imaging was not performed. Left ventricle cavity size at rest is normal.Left ventricle cavity size with stress is unchanged. A TID of 0.74 was automaticallycalculated. defect 1: Size is medium. Severity is moderate. Location of defect is in the midanterior segment, mid anterolateral segment, apical anterior segment and apical lateralsegment. Reversibility is full. Type of defect is ischemia. LV Function: There is hyperdynamic global left ventricular systolic function. Leftventricular ejection fraction is 81 %. CONCLUSIONS: There is hyperdynamic global left ventricular systolic function. Leftventricular ejection fraction is 81 %. Size is medium. Severity is moderate. Location of defect is in the midanterior segment, mid anterolateral segment, apical anterior segment and apical lateralsegment. Reversibility is full. Type of defect is ischemia. Myocardial perfusion imaging is abnormal. Negative EKG portion of stress test. Breast attenuation artifact is also noted. Electronically Signed By: Ra Magaña MD 08/07/2024 12:34:00 PM CDT Electronically Signed By: Ra Magaña MD 08/07/2024 12:34:00 PM CDT us Ra Magaña MD IMG NM PROCEDURES Final R esult from Last 3 Months Insurance AETNA MEDICARE GOLD Care Teams Film Editor Relationship Specialty Start Date End Date Dio Garcia MD PCP - General 05/06/13
--- OUTSIDE RECORDS SUMMARY | 2024-08-26 00:52 | XMS_ITS | Clinical Summary ---
Author Organization [facility] [address] Address [address] [place] [address] Care Team Providers Care Card Sorter Name Role Phone Dio Garcia MD Primary Care Provider [phone] Allergies No known active allergies Medications aspirin [...] artery disease of n ative artery of ak[place] heart with stable angina pectoris 11/23/2016 History [...] 08/06/19 25 Overview (09/08/2016): Dyspnea on exertion Encounters Date Type Department Care Team Description 08/11/2024 Telephone [facility] Medical [facility] Cardiology [address] [place] [address] [place] [phone] Ra Magaña MD 08/11/2024 Results Follow-Up [facility] Cardiology at [address] [place] [address] Ra Magaña MD 08/07/2024 7:45 AM CDT Ancillary Procedure [facility] Cardiology [address] [place] [address] [place] [phone] Coronary artery disease of [place] artery of [place] heart with stable angina pectoris 08/05/2024 8:15 AM CDT Office Visit [facility] Cardiology [address] [place] [address] [place] [phone] Ra Magaña MD RODRIGUEZ (dyspnea on exertion) (Primary Dx); Coronary artery disease of [place] artery of [place] heart with stable angina pectoris; Essential hypertension; Hyperlipidemia LDL goal <70; Syncope and collapse; History of tobacco abuse from Last 3 Months Surgical History Surgery Date Site/Laterality Comments OTHER SURGICAL HISTORY Heather fundoplicaion APPENDECTOMY Appendectomy CHOLECYSTECTOMY Cholecystectomy Medical History Medical History Date Comments Gastroesophageal reflux disease GERD Sleep apnea Sleep Apnea Hx Other Medical left ankle frac ture Hx Other Medical Subdural Hemato ma, 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 Family History Medical History Relation Name Comments Other Father 2 Aortic Aneurysm , Abdominal; Cause of : Aortic Aneurysm, Abdominal Heart failure Mother 2 Congestive Hea rt Failure; Cause of : Congestive Heart Failure Relation Name Status Comments Father 1 (Age 98) Father 2 Mother 1 (Age 74) Mother 2 Social History Tobacco Use Types Packs/Day Years Used Date Smoking Tobacco: Never Smokeless Tobacco: Never Tobacco Cessation:Counseling Given: Not Answered Alcohol Use Standard Drinks/Week Comments No 0 (1 standard drink = 0.6 oz pur e alcohol) Comments Unknown Sex and Gender Information Value Date Recorded Sex Assigned at Not on file Legal Sex Female 12:52 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 Gender Identity Not on file Sexual Orientation Not on file Obstetrics History Last Filed Vital Signs Vital Sign Reading [...] 08/05/2024 7:57 AM CDT Plan of Treatment Health Maintenance Due Date Last Done Comments Depression Screening 1945 Fall Risk Assessment 1945 Osteoporosis Screening-Bone Density Scan 1945 DTaP/Tdap/Td Vaccine (1 - Tdap) 1955 Hepatitis B Screening 1962 Zoster Vaccine (1 of 2) 1994 Well Visit 65+ 2009 Pneumococcal vaccine 65+ (2 of 2 - PCV) 03/02/2013 03/02/2012 Influenza Vaccine (Season Ended) 2024 12/15/2018, 01/01/2018, 01/08/2017, Additional history exists Procedures Procedure Name Priority Date/Time Associated Diagnosis Comments NM MPI SPECT (REST AND/OR STRESS) MULTIPLE STUDIES Schedule Routine, Read Routine (OP Routine) 08/07/2024 9:23 AM CDT Coronary artery disease of akhi[place] artery of [place] heart with stable angina pectoris from Last 3 Months Results * NM MPI SPECT (Rest and/or Stress) Multiple Studies (08/07/2024 9:23 AM CDT) Anatomical Region Laterality Modality Body N/A Nuclear Medicine 08/07/2024 8:36 AM CDT Narrative 08/07/2024 1:52 PM CDT [facility] Cardiology [address], [place] [address] [address] [facility] [address], [place] [address] P:[phone] P:[phone] MPI Imaging Report Patient Name: KATERIN DUONG B : 1945 Study Date: 08/07/2024 8:36:20 AM Gender: F [facility] Provider: RA MAGAÑA Height(Cm): 175.3 BSA: Weight(Kg): [...] RODRIGUEZ, and I25.118 Atherosclerotic heart disease of akhi[place] coronary artery with other forms of angina [...] Procedure Note Ra Magaña MD - 08/07/2024 [facility] Cardiology [address] [facility] [address], [place] [address] [address] [facility] [address], [place] [address] P:[phone] P:[phone] MPI Imaging Report Patient Name: STEWART DUONGRobbie HERBERT : 1945 Study Date: 08/07/2024 8:36:20 AM Gender: F Tech: [facility] Location: [facility] Provider: RA MAGAÑA Height(Cm): 175.3 BSA: Weight(Kg): [...] Cholesterol, RODRIGUEZ, and I25.118Atherosclerotic heart disease of [place] coronary artery with other forms of angina [...] Ra Magaña MD 08/07/2024 12:34:00 PM CDT Ra Magaña MD IMG NM PROCEDURES Final R esult from Last 3 Months Insurance [facility] MEDICARE [facility] AET[employer] MEDICARE GOLD Care Teams Card Sorter Relationship Specialty Start Date End Date Dio Garcia MD PCP - General 05/06/13
--- OUTSIDE RECORDS SUMMARY | 2024-08-26 00:52 | XMS_ITS | Encounter Summary ---
Author Organization [facility] Address [address] [place] [address] Care Team Providers Care Stock Checkerer Name Role Phone Dio Garcia MD Primary Care Provider [phone] Encounter Details Date Type Department Care Team (Late st Contact Info) Description 08/11/2024 Results Follow-Up [facility] Cardiology at [address] [place] [address] Ra Roberts MD [address] [id number] Social History Tobacco Use Types Packs/Day Years Used Date Smoking Tobacco: Never Smokeless Tobacco: Never Alcohol Use Standard Drinks/Week Comments No 0 (1 standard drink = 0.6 oz pur e alcohol) Comments Unknown Sex and Gender Information Value Date Recorded Sex Assigned at Not on file Legal Sex Female 12:52 AM SPECIAL 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
[2024-08-26 08:41] LABS: Basophils Percent Auto 0.5 % (0.2-1.2); Eosinophils Absolute Auto 0.2 K/mm3 (0-0.3); Eosinophils Percent Auto 2.3 % (0-4.4); Hematocrit 45.1 % (37.0-47.0); Immature Granulocyte Absolute 0.03 K/mm3 (0.00-0.031); Immature Granulocyte Percent A 0.4 % (0-0.5); Lymphocytes Percent Auto 24.5 % (18.3-44.2); Mean Corpuscular Volume 93.4 fl (80-100); Monocytes Absolute Auto 0.6 K/mm3 (0.1-0.6); Monocytes Percent Auto 7.3 % (2.6-8.5); Neutrophils Absolute Auto 5.1 K/mm3 (1.3-6.7); Platelet Count Result 204 k/mm3 (150-375); Red Blood Count 4.83 M/mm3 (4.2-5.4); Red Cell Distribution Width 12.3 % (11.5-14.5); White Blood Count 7.8 K/mm3 (4.5-10.0)
[2024-08-26 08:55] LABS: Anion Gap 8 mmol/L (4-12); Blood Urea Nitrogen 12 mg/dL (7-17); Calcium 9.2 mg/dL (8.4-10.2); Carbon Dioxide 26 mmol/L (22-30); Chloride 107 mmol/L (98-107); Estimated CRCL calculation 46 ml/min; Estimated Glomerular Filt Rate 60; Glucose 97 mg/dL (65-110); Potassium 4.1 mmol/L (3.4-5.0); Sodium 141 mmol/L (137-145)
--- NOTE | 2024-08-26 09:53 | WPDHPUPDATE1 ---
History and Physical Update Update Date/Time: 08/26/24 09:53 History and Physical has been reviewed, including an updated exam of the patient. There are NO changes in the patient's condition. Risks, benefits, and alternatives have been discussed and questions answered. Patient agrees to proceed with procedure.
--- NOTE | 2024-08-26 09:53 | WPDMODSED ---
Moderate Sedation Note-Pt Data Patient Data Diagnosis: Coronary artery disease Present Complaint: Coronary artery disease Procedure to be performed/Plan: Coronary angiography, left heart cath, +/- PCI Allergies Allergy/AdvReac Type Severity Reaction Status Date / Time adhesive tape AdvReac Rash Verified 08/25/24 09:44 Home Medications ?Medication ?Instructions ?Recorded ?Confirmed ?Type aspirin 81 mg tablet,delayed 81 mg PO DAILY 04/12/20 08/26/24 History release losartan 50 mg tablet 50 mg PO DAILY 04/12/20 08/26/24 History simvastatin 40 mg tablet 40 mg PO DAILY 04/12/20 08/26/24 History metoprolol tartrate 25 mg tablet 12.5 mg PO BID 07/20/20 08/26/24 History cholecalciferol (vitamin D3) 50 50 mcg PO BID 02/01/22 08/26/24 History mcg (2,000 unit) capsule ketoconazole 1 % shampoo (Nizoral 1 applic topical 2XW #200 mL 08/06/23 08/06/23 Rx A-D) isosorbide mononitrate 30 mg 30 mg PO DAILY 08/25/24 08/26/24 History tablet,extended release 24 hr Sedation/Anesthesia: No previous sedation/anesthesia problems (including family history). [facility] Past Medical History Medical History Seborrheic dermatitis BMI 27.0-27.9,adult Atherosclerotic heart disease of [place] coronary artery with angina pectoris Dietary counseling and surveillance (06/04/15) Encounter for screening for malignant neoplasm of colon Other secondary cataract, left eye Ovarian abscess Hiatal hernia Acid reflux Slipped Heather fundoplication SOB (shortness of breath) H/O: HTN (hypertension) Heart disease COPD (chronic obstructive pulmonary disease) Cataracts, bilateral BMI 28.0-28.9,adult Surgical History Surgical History History of cataract surgery 11/09/20 History of appendectomy History of cholecystectomy Family History Family History Father Aneurysm Heart disease Mother Heart disease Lung cancer Diabetes mellitus Asthma Sibling Agent orange exposure Sibling Cerebrovascular accident Other CAD (coronary artery disease) CHF (congestive heart failure), NYHA class I COPD (chronic obstructive pulmonary disease) Cancer Hearing loss Obesity Renal failure Social History Social History Smoking status: Former smoker Second hand tobacco smoke exposure: Yes Alcohol intake: former Substance use: never Substance use type: does not use Lack of Transportation: No Lack of Food: Never True Current Housing: I Have Housing Concerned About Future Housing: No Difficulty Paying Gas/Electric Bills: YES Difficulty Paying for Meds: No Currently Unemployed: YES Education: Trade/Vocational Certificate Difficulty w/ Childcare or Family Care: No Living arrangements: with family Additional living arrangements comments: Her daughter and grandchild moved into her [facility]. Occupation/Education: retired Additional occupation/education comments: [employer] Gender identity (if verbalized by the patient): Female Spiritual care concerns: No Mod Sed Physical Exam Physical Exam Pre Procedural Exam: Normal: Appearance, Lungs, Heart Rate, Heart Rhythm, Neuro Exam, Extremities and Skin Hours since solid foods: 12 Hours since liquid intake: 9 Mallampati Classification: class III Internal Medicine - PN: Obj Da Vital Signs Vital Signs: Vital Signs - 24 hr 08/26/24 08:08 Temperature 36.4 C Pulse Rate 58 L Respiratory Rate 16 Blood Pressure 193/91 H Pulse Oximetry 97 Oxygen Delivery Room Air Labs 08/26/24 08:05 08/26/24 08:05 Labs: Laboratory Results - last 24 hr 08/26/24 08:05 WBC 7.8 RBC 4.83 Hgb 14.0 Hct 45.1 MCV 93.4 MCH 29.0 MCHC 31.0 L RDW 12.3 Plt Count 204 MPV 10.0 Immature Gran % (Auto) 0.4 Neut % (Auto) 65.0 Lymph % (Auto) 24.5 [place] % (Auto) 7.3 Eos % (Auto) 2.3 Baso % (Auto) 0.5 Lymph # (Auto) 1.90 [place] # (Auto) 0.6 Eos # (Auto) 0.2 Baso # (Auto) 0.0 Abs Immat Gran (auto) 0.03 Absolute Neuts (auto) 5.1 Absolute Nucleated RBC 0.000 Nucleated RBC % 0.0 Sodium 141 Potassium 4.1 Chloride 107 Carbon Dioxide 26 Anion Gap 8 BUN 12 D Creatinine 0.90 Estim Creat Clear Calc 46 Estimated GFR 60 Glucose 97 Calcium 9.2 ASA Classification/Sedation ASA Classification/Sedation ASA Class: III Emergent: No Risks: Risks, benefits and alternatives explained and patient/family accepted plan for sedation. Patient re-evaluated immediately prior to sedation.
--- NOTE | 2024-08-26 11:01 | WPDCARDPROC ---
Cardiac Cath Procedure Note Date of procedure:: 08/26/24 Performing physician:: CATHETERIZATION LABORATORY REPORT Procedure Date: 08/26/2024 Occup Therapist: Cheko Garza M.D., [facility]? Referring Physician: Sekou Roberts M.D. ? Anesthesia: Versed and Fentanyl were ordered and given in my presence at 10:13, procedure ended at 10:48. Supervision of nurse monitored moderate sedation with Versed and Fentanyl was provided for 35 minutes. Total of Versed 1mg and Fentanyl 50mcg were administered by the Missile [employer] Missile Checkout Technician RN Pascale Sanderson. Pre-op Diagnosis: Coronary artery disease Post-op Diagnosis: 1. Stable coronary artery disease. There is a small caliber high diagonal branch with stent in the proximal portion with 80-90% in stent restenosis. Angiographically similar to prior [facility] from 2017. Otherwise, mild disease in other coronary arteries. 2. Elevated left ventricular end-diastolic pressure of 20mmHg Procedure(s): 1. Moderate sedation 2. Ultrasound-guided access of the right radial artery, right common femoral artery, left common femoral artery 3. Coronary angiography 4. Left heart cath Access Site: Attempted access of right radial artery, right common femoral artery. Access site was the left common femoral artery Brief History and Clinical Indications: Patient is an 79 year old female with CAD s/p prior PCI who is referred for [facility] for angina and abnormal stress test. All risks, benefits and alternatives to left heart catheterization with or without percutaneous coronary intervention was discussed at length with the patient. Risk of complications including but not limited to bleeding, infection, arrhythmia, stroke, worsening kidney function, blood loss, groin hematoma, limb loss, emergency coronary artery bypass grafting, and even were discussed with the patient and all questions were answered. The patient understood and wished to proceed. Time out called, patient name, date of , medical record number, allergies, procedure performed, identify Occup Therapist, patient and staff member concurred with accurate data, procedure carried on. Findings: LEFT HEART CATHETERIZATION FINDINGS: 1. Left main: The left main coronary artery is widely patent without any significant obstructive disease. 2. Left anterior descending: There is mild disease in the ostium of the LAD. Heavy calcifications in the proximal LAD. There is mild disease in the mid portion. LAD is without any significant obstructive angiographic disease. There is a small caliber high diagonal branch with stent in the proximal portion with 80-90% in stent restenosis. 3. Left circumflex: The left circumflex artery and the main marginal branches have mild diffuse disease without any significant obstructive angiographic disease. 4. Right coronary artery: The RCA is the dominant vessel. The mid portion has a mild 40-50% focal stenosis. There is mild disease in the proximal RPDA and RLV. No significant obstructive angiographic disease. 5. Left ventricle: A. End-diastolic pressure 20 mmHg. B. LV gram deferred. C. No significant gradient across aortic valve on catheter pullback. Description of Procedure: Informed consent signed and placed in the chart. Patient transferred to phlebotomy lab assistant room. Prepped and draped in usual sterile fashion. 2% lidocaine injected subcutaneously in right wrist area. 22-gauge venipuncture catheter used to access the right radial artery under ultrasound guidance. The radial artery was successfully accessed with the needle, however, unable to advance the wire. Needle removed and manual pressure applied for hemostasis. Needle used to access right radial artery again under ultrasound guidance, but unable to wire the vessel again. Needle removed and manual pressure applied for hemostasis. Pursued femoral access then. 2% lidocaine in right groin area. Micropuncture needle used to access right common femoral artery with Seldinger technique under fluoroscopic and ultrasound guidance. However, unable to advance the wire past the right iliac artery under fluoroscopy. Given this, wire and needle removed and manual pressure applied to achieve hemostasis. 2% lidocaine in left groin area. Micropuncture needle used to access left common femoral artery with Seldinger technique under fluoroscopic and ultrasound guidance. J wire advanced, micropuncture cannula placed. Right iliofemoral angiogram performed, and micropuncture cannula exchanged for 6-FR sheath. 5F FL 4 diagnostic catheter engaged Left Main Coronary Artery. 5F FR 4 diagnostic catheter engaged Right Coronary Artery. Multiple orthogonal angiogram obtained and reviewed 5F Pigtail diagnostic catheter crossed aortic valve to obtain LVEDP, LV angiogram deferred. Hemostasis was achieved by manual pressure. Disposition: Home Plan: The patient will be monitored in the recovery area. Discharge home after post cath bed rest is completed. The above findings were discussed with the referring physician. Continue aggressive medical therapy and risk factor modification. ? Cheko Garza M.D. Interventional Cardiology
--- NOTE | 2024-08-26 15:48 | PC.NURSE ---
Pt ambulated to bathroom with assistance. Gait steady. Returned to recliner after voiding.
== END 2024-08-26 16:45 | disposition home or self-care (01) ==
PROVIDERS: PCP Family Medicine; Visit Provider Internal Medicine
PROC: 4A023N7 Measurement of Cardiac Sampling and Pressure, Left Heart, Percutaneous Approach (ICD-10-PCS; CPT 93452; principal; 2024-08-26 09:30)
DX: I25.10 Atherosclerotic heart disease of native coronary artery without angina pectoris (principal); T82.855A Stenosis of coronary artery stent, initial encounter; I25.84 Coronary atherosclerosis due to calcified coronary lesion; Y83.8 Other surgical procedures as the cause of abnormal reaction of the patient, or of later complication, without mention of misadventure at the time of the procedure; Z87.891 Personal history of nicotine dependence
CPT/HCPCS: 36415; 80048; 85025; 93458; C1769; C1887; C1894; J1644; J2003; J2250; J2305; J3010; J7040

== ENCOUNTER 2025-02-05 11:46 | Emergency (ER) | payer MEDICARE, SELFPAY ==
--- NOTE | ~2025-02-05 | CT_ITS ---
EXAMINATION: CT cervical spine wo con COMPARISON: None HISTORY: Fall TECHNIQUE: Axial images were obtained through the spine without IV contrast. Coronal, sagittal reconstruction images were obtained from the axial views. CT scan performed using dose optimization techniques including the following automated exposure control; adjustment of mA and/or kV; use of iterative reconstruction technique. Automatic exposure control was used to reduce radiation dose. Permanent radiation dose record is archived to PACS. FINDINGS: Moderate loss of vertebral height, no fracture or subluxation, there are scattered subcentimeter lithotripsy probably small hemangiomas in the absence of prior neoplasm. Moderate loss of disc height at C4-5 C5-6 and C6-7 with severe degenerative changes also noted of the C1-C2 articulation with moderate canal and foraminal stenosis, outpatient MRI is recommended Soft tissues unremarkable. Impression: No acute abnormality. Reviewed, dictated and finalized at location P. Impression: No acute abnormality.
--- NOTE | ~2025-02-05 | CT_ITS ---
EXAMINATION: CT brain wo clara, 02/05/2025 13:43 CDT HISTORY: Fall COMPARISON: No comparisons available. Technique: Axial images obtained of the brain without contrast. One or more of the following dose reduction techniques were used: automated exposure control, adjustment of the mA and/or kV according to patient size, use of iterative reconstruction technique. Findings: No acute infarct or parenchymal hemorrhage. No abnormal mass or mass effect. No midline shift. No extra-axial fluid collections. No hydrocephalus. Mastoid air cells unremarkable. Sinuses and orbits unremarkable. No acute fracture. No significant facial or scalp soft tissue swelling evident. No radiopaque foreign body is seen. Impression: 1.No acute intracranial abnormality. Reviewed, dictated and finalized at location P. Impression: 1.No acute intracranial abnormality.
--- NOTE | ~2025-02-05 | XR_ITS ---
EXAMINATION: XR pelvis 1-2V, 02/05/2025 13:49 CDT HISTORY: Fall COMPARISON: No comparisons available. Findings: No acute fracture or malalignment. Moderate degenerative changes Soft tissues unremarkable. Impression: No acute fracture or malalignment. Reviewed, dictated and finalized at location P. Impression: No acute fracture or malalignment.
--- NOTE | ~2025-02-05 | XR_ITS ---
EXAMINATION: XR chest 1V, 02/05/2025 13:49 CDT HISTORY: Fall COMPARISON: No comparisons available. Technique: Single view. Findings: The lungs are clear, no effusion. No pneumothorax. Heart is normal size. Mediastinal and hilar contours are within normal limits. Bony thorax no acute abnormality. Impression: No acute cardiopulmonary abnormality. Reviewed, dictated and finalized at location P. Impression: No acute cardiopulmonary abnormality.
[2025-02-05 11:51] VITALS: BP 176/114; PULSE 62; RESP 15; TEMP 36.7; O2SAT 100
[2025-02-05 12:01] VITALS: BP 151/135; PULSE 62; RESP 14; TEMP 36.7; O2SAT 100
--- OUTSIDE RECORDS SUMMARY | 2025-02-05 13:23 | XMS_ITS | Encounter Summary ---
Author Organization [facility] Address [address] [place] [id number] Care Team Providers Care Lead Sales Consultant Name Role Phone Dio Garcia MD Primary Care Provider + [phone] Encounter Details Date Type Department Care Team (Late st Contact Info) Description 09/05/2016 Orders Only [facility] ProviderDulce MD [address] [place] [id number] Social History Tobacco Use Types Packs/Day Years Used Date Smoking Tobacco: Never Alcohol Use Standard Drinks/Week Comments Yes 0 (1 standard drink = 0.6 oz pur e alcohol) Comments Unknown Sex and Gender Information Value Date Recorded Sex Assigned at Not on file 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
--- OUTSIDE RECORDS SUMMARY | 2025-02-05 13:23 | XMS_ITS | Clinical Summary ---
Author Organization [facility] Address [facility] [place] [address] Care Team Providers Care Aircraft Electrical Systems Specialist Name Role Phone Dio Garcia MD Primary Care Provider [phone] Allergies No known active allergies Medications aspirin [...] 12:55 PM CDT Height 175.3 cm (5' 9) 11/02/2020 12:55 PM CDT Body Mass Index [...] 75+ series) 2019 COVID-19 Vaccine (2 - 2024-2 6 season) 2024 08/11/2020 Influenza Adult (#1) 2025 Hepatitis A Vaccines Aged Out No long er eligible based on patient's age to complete this topic Meningococcal B Vaccine Aged Out No l onger eligible based on patient's age to complete this topic Meningococcal Vaccine Aged Out No silvestre navneet eligible based on patient's age to complete this topic RSV Immunizations Under 20 Months Aged Out No longer eligible based on patient's age to complete this topic Medical Devices Implanted Type Area Lace Stripper Device Identifier Shelf Expiration Date Model / Serial / Lot [id number] Implanted:Qty: 1 on 11/08/2020 by Luis Felipe Wiley MD at [facility] [employer] 08/17/2022 / [id number] / Insurance [employer] MEDICARE Care Teams Aircraft Electrical Systems Specialist Relationship Specialty Start Date End Date Dio Garcia MD [address] [place] [address] PCP - General FAMILY PRACTICE 11/08/20
--- OUTSIDE RECORDS SUMMARY | 2025-02-05 13:23 | XMS_ITS | Clinical Summary ---
Author Organization [facility] [address] Address [address] [place] [address] Care Team Providers Care Processing Clerk Name Role Phone Dio Garcia MD Primary Care Provider + [phone] Allergies No known active allergies Medications aspirin 81 mg tablet take 1 tablet (81MG) by oral route every day 0 1 Active simvastatin (ZOCOR) 40 mg tablet TAKE 1 TABLET BY MOUTH EVERY DAY AT NIGHT 90 tablet 3 4 Active metoprolol tartrate (LOPRESSOR) 25 mg immediate release tablet Take 0.5 tablets (12.5 mg total) by mouth 2 (two) times a day 90 tablet 3 5 Active losartan (COZAAR) 50 mg tablet TAKE 1 TABLET BY MOUTH EVERY DAY 90 tablet 5 Active isosorbide mononitrate ER (IMDUR) 30 mg 24 hr tablet TAKE 1 TABLET BY MOUTH EVERY DAY 90 tablet 5 Active isosorbide mononitrate ER (IMDUR) 30 mg 24 hr tablet Take 1 tablet (30 mg total) by mouth daily 90 tablet 3 4 025 Discontinued Active Problems Problem Noted Date Diagnosed Date RODRIGUEZ (dyspnea on exertion) 08/05/2024 Right carotid bruit 04/20/2022 Syncope and collapse 05/24/2018 Coronary artery disease of [place] artery of [place] heart with stable angina pectoris 11/23/2016 History [...] 08/06/19 25 Overview (09/08/2016): Dyspnea on exertion Surgical History Surgery Date Site/Laterality Comments OTHER [...] on file 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
[2025-02-05 13:47] LABS: Hematocrit 46.9 % (37.0-47.0); Hemoglobin 14.9 g/dL (12.0-15.0); Immature Granulocyte Percent A 0.4 % (0-0.5); Lymphocytes Absolute Auto 2.44 K/mm3 (0.9-3.2); Mean Corpuscular HGB Conc 31.8 g/dl (32-36); Mean Corpuscular Hemoglobin 29.2 pg (26-34); Mean Corpuscular Volume 91.8 fl (80-100); Nucleated Red Blood Cells Absolute Auto 0.000 K/mm3 (0.0-0.012); Nucleated Red Blood Cells Perc 0.0 % (0.0-0.2); Platelet Count Result 233 k/mm3 (150-375); Red Blood Count 5.11 M/mm3 (4.2-5.4); White Blood Count 10.4 K/mm3 (4.5-10.0)
[2025-02-05 14:05] LABS: Alanine Aminotransferase 13 U/L (6-35); Albumin Level 4.0 g/dL (3.5-5.1); Alkaline Phosphatase 115 U/L (38-126); Anion Gap 5 mmol/L (4-12); Aspartate Amino Transferase 23 U/L (14-36); Bilirubin,Total 0.5 mg/dL (0.2-1.3); Blood Urea Nitrogen 19 mg/dL (7-17); Calcium 9.7 mg/dL (8.4-10.2); Carbon Dioxide 28 mmol/L (22-30); Chloride 108 mmol/L (98-107); Creatine Kinase 89 U/L (30-135); Estimated CRCL calculation 35 ml/min; Estimated Glomerular Filt Rate 44; Glucose 80 mg/dL (65-110); Potassium 4.0 mmol/L (3.4-5.0); Sodium 141 mmol/L (137-145); Total Protein 7.6 g/dL (6.3-8.2)
--- NOTE | 2025-02-05 14:13 | ED_ITS ---
HPI - General Adult General Chief complaint: Fall Stated complaint: fall Time Seen by Provider: 02/05/25 12:06 History of Present Illness HPI narrative: This is an 79-year-old female presenting after a ground level fall. She was walking her house the middle the night when she turned too quickly and fell to the ground. She landed on her left side. Her foot got caught in this brings of her bed and she was unable to get up off the floor until her family arrived in the morning. This time she has some pain over her left greater trochanter. She has been able ambulate. No other injuries. She did strike her head. Related Data Home Medications ?Medication ?Instructions ?Recorded ?Confirmed ?Last Taken ?Type aspirin 81 mg tablet,delayed 81 mg PO DAILY 04/12/20 0 08/26/24 08/26/24 History release losartan 50 mg tablet 50 mg PO DAILY 04/12/2008/1408/26/24 History simvastatin 40 mg tablet 40 mg PO DAILY 04/12/2008/1408/26/24 History metoprolol tartrate 25 mg tablet 12.5 mg PO BID 08/26/24 08/26/24 History cholecalciferol (vitamin D3) 50 50 mcg PO BID 02/01/22 08/26/24 08/25/24 History mcg (2,000 unit) capsule isosorbide mononitrate 30 mg 30 mg PO DAILY 08/25/24 0 08/26/24 08/26/24 History tablet,extended release 24 hr Allergies Allergy/AdvReac Type Severity Reaction Status Date / Time adhesive tape AdvReac Rash Verified 02/05/25 12:02 [facility] Past Medical History Medical History Seborrheic dermatitis BMI 27.0-27.9,adult Atherosclerotic heart disease of [place] coronary artery with angina pectoris Dietary counseling and surveillance (06/04/15) Encounter for screening for malignant neoplasm of colon Other secondary cataract, left eye Ovarian abscess Hiatal hernia Acid reflux Slipped Heather fundoplication SOB (shortness of breath) H/O: HTN (hypertension) Heart disease COPD (chronic obstructive pulmonary disease) Cataracts, bilateral BMI 28.0-28.9,adult Surgical History Surgical History History of cataract surgery 11/09/20 History of appendectomy History of cholecystectomy Family History Family History Father Aneurysm Heart disease Mother Heart disease Lung cancer Diabetes mellitus Asthma Sibling Agent orange exposure Sibling Cerebrovascular accident Other CAD (coronary artery disease) CHF (congestive heart failure), NYHA class I COPD (chronic obstructive pulmonary disease) Cancer Hearing loss Obesity Renal failure Social History Social History Smoking status: Former smoker Second hand tobacco smoke exposure: Yes Alcohol intake: former Substance use: never Substance use type: does not use Lack of Transportation: No Lack of Food: Never True Current Housing: I Have Housing Concerned About Future Housing: No Difficulty Paying Gas/Electric Bills: YES Difficulty Paying for Meds: No Currently Unemployed: YES Education: Trade/Vocational Certificate Difficulty w/ Childcare or Family Care: No Living arrangements: with family Additional living arrangements comments: Her daughter and grandchild moved into her [facility]. Occupation/Education: retired Additional occupation/education comments: [employer] Gender identity (if verbalized by the patient): Female Spiritual care concerns: No Exam 2 Narrative: APPEARANCE: No apparent distress. Head: atraumatic. EYES: EOMI, NOSE: Atraumatic NECK: Trachea midline RESPIRATORY: No increased rate of breathing clear to auscultation CARDIOVASCULAR: RRR, ABDOMINAL: Non-distended MUSCULOSKELETAl: No obvious deformities head to toe trialed exam performed with some tenderness over the left greater trochanter no other obvious injuries or deformities. NEURO: Alert. Cranial nerves 2-12 grossly intact. Sensation light touch, motor function cerebellar function intact for 4 extremities. Gait exam was normal. SKIN:: Warm, dry. Normal color PSYCHIATRIC: Normal affect Course Vital Signs Vital signs: Vital Signs Temperature 98.1 F 02/05/25 11:51 Pulse Rate 62 02/05/25 11:51 Respiratory Rate 15 02/05/25 11:51 Blood Pressure 176/114 H 02/05/25 11:51 Pulse Oximetry 100 02/05/25 11:51 Oxygen Delivery Room Air 02/05/25 11:51 Temperature 98.1 F 02/05/25 12:01 Pulse Rate 62 02/05/25 12:01 Respiratory Rate 14 02/05/25 12:01 Blood Pressure 151/135 H 02/05/25 12:01 Pulse Oximetry 100 02/05/25 12:01 Oxygen Delivery Room Air 02/05/25 11:51 Medical Decision Making [facility] Narrative Medical decision making narrative: -Course: 79-year-old female presenting after ground level fall. No complaints outside some tenderness over the left greater trochanter. Imaging head neck chest and pelvis was negative for acute fractures. Screening lab work was ordered which was unremarkable. CPK is normal. Patient is able ambulate with a steady gait. She will be discharged home. Return precautions. -DDX includes but is not limited to: Hip fracture, rhabdomyolysis, dehydration Vital Signs Vital Signs: Vital Signs Temperature 98.1 F 02/05/25 11:51 Pulse Rate 62 02/05/25 11:51 Respiratory Rate 15 02/05/25 11:51 Blood Pressure 176/114 H 02/05/25 11:51 Pulse Oximetry 100 02/05/25 11:51 Oxygen Delivery Room Air 02/05/25 11:51 Temperature 98.1 F 02/05/25 12:01 Pulse Rate 62 02/05/25 12:01 Respiratory Rate 14 02/05/25 12:01 Blood Pressure 151/135 H 02/05/25 12:01 Pulse Oximetry 100 02/05/25 12:01 Oxygen Delivery Room Air 02/05/25 11:51 Lab Data 02/05/25 13:41 02/05/25 13:41 Labs: Lab Results 02/05/25 Range/Units 13:41 WBC 10.4 H (4.5-10.0) K/mm3 RBC 5.11 (4.2-5.4) M/mm3 Hgb 14.9 (12.0-15.0) g/dL Hct 46.9 (37.0-47.0) % MCV 91.8 (80-100) fl MCH 29.2 (26-34) pg MCHC 31.8 L (32-36) g/dl RDW 12.7 (11.5-14.5) % Plt Count 233 (150-375) k/mm3 MPV 10.4 (7.4-10.4) fl Immature Gran % (Auto) 0.4 (0-0.5) % Neut % (Auto) 65.8 (45.5-73.1) % Lymph % (Auto) 23.4 (18.3-44.2) % [place] % (Auto) 8.2 (2.6-8.5) % Eos % (Auto) 1.7 (0-4.4) % Baso % (Auto) 0.5 (0.2-1.2) % Lymph # (Auto) 2.44 (0.9-3.2) K/mm3 [place] # (Auto) 0.9 H (0.1-0.6) K/mm3 Eos # (Auto) 0.2 (0-0.3) K/mm3 Baso # (Auto) 0.1 (0.0-0.1) K/mm3 Abs Immat Gran (auto) 0.04 H (0.00-0.031) K/mm3 Absolute Neuts (auto) 6.9 H (1.3-6.7) K/mm3 Absolute Nucleated RBC 0.000 (0.0-0.012) K/mm3 Nucleated RBC % 0.0 (0.0-0.2) % Sodium 141 (137-145) mmol/L Potassium 4.0 (3.4-5.0) mmol/L Chloride 108 H (98-107) mmol/L Carbon Dioxide 28 (22-30) mmol/L Anion Gap 5 (4-12) mmol/L BUN 19 H (7-17) mg/dL Creatinine 1.18 H (0.7-1.0) mg/dL Estim Creat Clear Calc 35 ml/min Estimated GFR 44 L (59 - ) Glucose 80 (65-110) mg/dL Calcium 9.7 (8.4-10.2) mg/dL Total Bilirubin 0.5 (0.2-1.3) mg/dL AST 23 (14-36) U/L ALT 13 (6-35) U/L Alkaline Phosphatase 115 (38-126) U/L Total Creatine Kinase 89 (30-135) U/L Total Protein 7.6 (6.3-8.2) g/dL Albumin 4.0 (3.5-5.1) g/dL Discharge Plan Discharge Clinical Impression: Fall, Acute hip pain Patient Disposition: Home Condition: Stable Instructions: Antibiotic Form, Fall Prevention (ED) Additional Instructions: Please use [id number] Motrin Tylenol as needed for pain control. Follow up with her primary care physician as needed. Return if you develop any new or worsening symptoms. Patient Language: Algerian Prescriptions: No Action aspirin 81 mg tablet,delayed release (DR/EC) 81 mg PO DAILY simvastatin 40 mg tablet 40 mg PO DAILY losartan 50 mg tablet 50 mg PO DAILY metoprolol tartrate 25 mg tablet 12.5 mg PO BID Rx Instructions: 1/2 tab am and 1/2 tab pm cholecalciferol (vitamin D3) 50 mcg (2,000 unit) capsule 50 mcg PO BID Nizoral A-D 1 % shampoo 1 applic topical 2XW Qty: 200 0RF isosorbide mononitrate 30 mg tablet extended release 24 hr 30 mg PO DAILY Follow-up/Referrals: Dio Garcia MD [Primary Care Provider, Family Practice]
[2025-02-05] MEDS: ACETAMINOPHEN 500 MG TABLET 1000 MG PO (14:34)
[2025-02-05] MEDS: KETOROLAC 15 MG/ML VIAL (*BKC) IV PUSH (14:34)
[2025-02-05 15:27] VITALS: BP 149/101; PULSE 87; RESP 18; O2SAT 99
== END 2025-02-05 15:28 | disposition home or self-care (01) ==
PROVIDERS: Emergency Provider Emergency Medicine; PCP Family Medicine
DX: M25.552 Pain in left hip (principal); W18.30XA Fall on same level, unspecified, initial encounter; I10 Essential (primary) hypertension; J44.9 Chronic obstructive pulmonary disease, unspecified; I25.10 Atherosclerotic heart disease of native coronary artery without angina pectoris; Z87.891 Personal history of nicotine dependence
CPT/HCPCS: 36415; 70450; 71045; 72125; 72170; 80053; 82550; 85025; 96374; 99284; A9270; J1885